=== PATIENT | female | born 1965 | race Caucasian/White ===

== ENCOUNTER 2021-09-17 11:36 | Outpatient (CLI) | payer OTHER | END 2021-09-17 11:37 | disposition home or self-care (01) | LOC: TBSIIMAG 11:36 | PROVIDERS: ATTEND Family Medicine | DX: M47.26 Other spondylosis with radiculopathy, lumbar region (principal); M48.07 Spinal stenosis, lumbosacral region | CPT/HCPCS: 72100; 72148 ==

== ENCOUNTER 2022-08-19 12:28 | Outpatient (CLI) | payer BC | END 2022-08-19 12:29 | disposition home or self-care (01) | LOC: TBSIIMAG 12:28 | PROVIDERS: ATTEND Surgery | DX: M51.16 Intervertebral disc disorders with radiculopathy, lumbar region (principal); M47.26 Other spondylosis with radiculopathy, lumbar region; M51.37 Other intervertebral disc degeneration, lumbosacral region | CPT/HCPCS: 72120; 72148 ==

== ENCOUNTER 2022-11-30 10:45 | Outpatient (CLI) | payer BC ==
[2022-11-30 13:12] LABS: Hemoglobin 16.2 g/dL (12.0-15.5); Mean Corpuscular HGB CONC 33.3 g/dL (32.0-36.0); Mean Corpuscular Hemoglobin 30.7 pg (27.0-33.0); Mean Corpuscular Volume 92.2 fl (81.6-98.3); Mean Platelet Volume 11.7 fl (7.4-10.4); Platelet Count 214 10x3/uL (150-450); RBC Distribution Width 13.1 % (11.5-14.5); Red Blood Cell (RBC) Count 5.28 10x6/uL (3.90-5.03)
[2022-11-30 13:39] LABS: PTT 28.8 sec (22.0-33.0); Prothrombin Time 10.5 sec (9.5-12.1)
[2022-11-30 13:40] LABS: Anion Gap 15 mmol/L (10-20); BUN (Urea Nitrogen) 12 mg/dL (9.8-20.1); Calc. Creatinine Clearance 0 mL/min (70-130); Calcium 9.4 mg/dL (7.8-10.44); Carbon Dioxide 29 mmol/L (22-29); Chloride 101 mmol/L (98-107); Estimated GFR 64; Glucose 115 mg/dL (70-105); Sodium 141 mmol/L (136-145)
[2022-11-30 13:48] LABS: Potassium 4.4 mmol/L (3.5-5.1)
== END 2022-11-30 10:46 | disposition home or self-care (01) ==
LOC: LABBT 10:45
PROVIDERS: ATTEND Surgery
DX: Z01.818 Encounter for other preprocedural examination (principal); M51.16 Intervertebral disc disorders with radiculopathy, lumbar region
CPT/HCPCS: 80048; 85027; 85610; 85730; 93005; 93010

== ENCOUNTER 2022-12-03 07:56 | Day surgery (SDC) | payer BC ==
[2022-12-02 09:55] VITALS: BMI 49.6
[2022-12-03 09:34] LABS: SARS-CoV-2 NAA Rapid Test Not Detected (NotDetected)
[2022-12-03] MEDS ORDERED: Thrombin 5000 UNITS/5 ML VIAL ONE (10:10)
[2022-12-03] MEDS ORDERED: Vancomycin 1 GM VIAL ONE (10:10)
[2022-12-03] MEDS ORDERED: Propofol 500 MG/50 ML VIAL ONE (10:51)
[2022-12-03] MEDS ORDERED: SUGAMMADEX SODIUM 200 MG/2 ML VIAL ONE (10:51)
[2022-12-03] MEDS ORDERED: Fentanyl 250 MCG/5 ML VIAL ONE (10:51)
[2022-12-03] MEDS ORDERED: Midazolam HCl 2 mg/2 ml Vial ONE (11:00)
[2022-12-03] MEDS ORDERED: Famotidine/PF 20 mg/2ml Vial ONE (11:00)
[2022-12-03] MEDS ORDERED: Clindamycin/D5W 900 mg/50 ml Premix Bag ONE (11:00)
[2022-12-03] MEDS ORDERED: Rocuronium Bromide 10 MG/ML (10ML VIAL) ONE (11:16)
[2022-12-03] MEDS ORDERED: NEOSTIGMINE 3 MG/3 ML SYR 3 MG/3 ML SYRINGE ONE (11:16)
[2022-12-03] MEDS ORDERED: PROPOFOL 200 MG/20 ML VIAL ONE (11:16)
[2022-12-03] MEDS ORDERED: Lidocaine 1% PF 5 ML VIAL ONE (11:16)
[2022-12-03] MEDS ORDERED: Ondansetron PF 4 MG/2 ML Vial ONE (11:16)
[2022-12-03] MEDS ORDERED: Glycopyrrolate 0.2 MG/ML 5 ML SYRINGE ONE (11:16)
[2022-12-03] MEDS ORDERED: PHENYLEPHRINE-NS 100 MCG/ML 10 ML SYRINGE ONE (11:16)
[2022-12-03] MEDS ORDERED: Dexamethasone 20 MG/5 ML VIAL ONE (11:16)
[2022-12-03] MEDS ORDERED: Fentanyl 100 MCG/2 ML VIAL ONE (13:52)
[2022-12-03] MEDS ORDERED: traMADol HCl 50 MG TAB ONE (15:17)
[2022-12-03] MEDS ORDERED: Cyclobenzaprine 10 MG TAB ONE (15:48)
== END 2022-12-03 16:13 | disposition home or self-care (01) ==
LOC: SDC 07:56
PROVIDERS: ATTEND Surgery
PROC: 01NB0ZZ Release Lumbar Nerve, Open Approach (ICD-10-PCS; principal; 2022-12-03)
PROC: 0SB40ZZ Excision of Lumbosacral Disc, Open Approach (ICD-10-PCS; principal; 2022-12-03)
DX: M48.061 Spinal stenosis, lumbar region without neurogenic claudication (principal); M51.16 Intervertebral disc disorders with radiculopathy, lumbar region; Z79.01 Long term (current) use of anticoagulants; Z79.02 Long term (current) use of antithrombotics/antiplatelets; Z79.82 Long term (current) use of aspirin; Z79.899 Other long term (current) drug therapy; Z88.0 Allergy status to penicillin; Z88.1 Allergy status to other antibiotic agents; Z88.5 Allergy status to narcotic agent; Z88.7 Allergy status to serum and vaccine; Z88.8 Allergy status to other drugs, medicaments and biological substances; Z20.822 Contact with and (suspected) exposure to COVID-19
CPT/HCPCS: C1894; J1100; J2250; J2405; J2704; J3010; J3370; J3490; S0028; U0002

== ENCOUNTER 2023-12-30 13:56 | Outpatient (CLI) | payer BC ==
[2023-12-30 14:57] LABS: Hematocrit 48.1 % (34.9-44.5); Hemoglobin 16.7 g/dL (12.0-15.5); Mean Corpuscular HGB CONC 34.7 g/dL (32.0-36.0); Mean Corpuscular Hemoglobin 32.4 pg (27.0-33.0); Mean Corpuscular Volume 93.4 fl (81.6-98.3); Mean Platelet Volume 12.5 fl (7.4-10.4); Platelet Count 194 10x3/uL (150-450); RBC Distribution Width 12.8 % (11.5-14.5); Red Blood Cell (RBC) Count 5.15 10x6/uL (3.90-5.03); White Blood Cell (WBC) Count 10.9 10x3/uL (3.5-10.5)
[2023-12-30 15:04] LABS: Anion Gap 12 mmol/L (10-20); BUN (Urea Nitrogen) 9 mg/dL (9.8-20.1); Calc. Creatinine Clearance 0 mL/min (70-130); Carbon Dioxide 30 mmol/L (22-29); Chloride 101 mmol/L (98-107); Estimated GFR 70; Glucose 103 mg/dL (70-105); Potassium 4.4 mmol/L (3.5-5.1); Sodium 139 mmol/L (136-145)
[2023-12-30 15:05] LABS: PTT 33.3 sec (22.0-33.0)
== END 2023-12-30 13:57 | disposition home or self-care (01) ==
LOC: LABBT 13:56
PROVIDERS: ATTEND Surgery
DX: Z01.812 Encounter for preprocedural laboratory examination (principal); M48.061 Spinal stenosis, lumbar region without neurogenic claudication; M54.16 Radiculopathy, lumbar region
CPT/HCPCS: 80048; 85027; 85610; 85730; 93005; 93010

== ENCOUNTER 2024-01-03 06:18 | Inpatient (IN) | payer BC ==
[2023-12-30 14:27] VITALS: BMI 39.3
[2024-01-03] MEDS ORDERED: Vancomycin 1 GM VIAL ONE (06:30)
[2024-01-03] MEDS ORDERED: Thrombin 5000 UNITS/5 ML VIAL ONE (06:31)
[2024-01-03] MEDS ORDERED: PROPOFOL 20 ML ONE (06:57)
[2024-01-03] MEDS ORDERED: Rocuronium Bromide 10 MG/ML (10ML VIAL) ONE (06:58)
[2024-01-03] MEDS ORDERED: Fentanyl 250 MCG/5 ML VIAL ONE (06:58)
[2024-01-03] MEDS ORDERED: Ketamine In 0.9 % NaCl 50 MG/5 ML SYRINGE ONE (06:58)
[2024-01-03] MEDS ORDERED: Lidocaine 1% PF 5 ML VIAL ONE (06:58)
[2024-01-03] MEDS ORDERED: Vancomycin (BATCH) 2 GM in Premix 1 BAG IVPB SCH (07:00)
[2024-01-03] MEDS ORDERED: Midazolam HCl 2 mg/2 ml Vial ONE (07:26)
[2024-01-03] MEDS ORDERED: MINERAL OIL/WHITE PETROLATUM 3.5 GM TUBE ONE (08:02)
[2024-01-03] MEDS ORDERED: PHENYLEPHRINE-NS 100 MCG/ML 10 ML SYRINGE ONE (08:59)
[2024-01-03] MEDS ORDERED: Vecuronium 10 MG VIAL ONE (09:54)
[2024-01-03] MEDS ORDERED: Promethazine HCl 25 MG/ML VIAL IM PRN ×2 (11:03→15:17)
[2024-01-03] MEDS ORDERED: Ondansetron HCl/PF 4 MG/2 ML Vial IVP PRN (11:03)
[2024-01-03] MEDS ORDERED: diphenhydrAMINE 25 MG CAP PO PRN ×2 (11:32→15:17)
[2024-01-03] MEDS ORDERED: fentaNYL 50 mcg/mL 1 mL Vial SLOW IVP PRN (11:32)
[2024-01-03] MEDS ORDERED: oxyCODONE 5 MG TAB PO PRN ×2 (11:35)
[2024-01-03] MEDS ORDERED: Ondansetron PF 4 MG/2 ML Vial ONE (11:35)
[2024-01-03] MEDS ORDERED: Dexmedetomidine 200 MCG/2 ML VIAL ONE (11:36)
[2024-01-03] MEDS ORDERED: hydrALAZINE 20 MG/ML VIAL SLOW IVP PRN (11:36)
[2024-01-03] MEDS ORDERED: Glycopyrrolate 0.2 MG/ML 5 ML SYRINGE ONE (11:36)
[2024-01-03] MEDS ORDERED: NEOSTIGMINE 3 MG/3 ML SYR 3 MG/3 ML SYRINGE ONE (11:36)
[2024-01-03] MEDS ORDERED: Lidocaine 2% PF 5 ML VIAL ONE (11:36)
[2024-01-03] MEDS ORDERED: Nitroglycerin 0.4 MG TAB (25 Tab Bottle) SL PRN (11:38)
[2024-01-03] MEDS ORDERED: ALPRAZolam 0.5 MG TAB PO PRN (11:38)
[2024-01-03] MEDS ORDERED: Albuterol 2.5 MG (3 mL) NEB NEB PRN ×2 (11:38→13:07)
[2024-01-03] MEDS ORDERED: Fluticasone Propionate Nasal Spray 16 gm Bottle NASAL PRN (11:38)
[2024-01-03] MEDS ORDERED: traMADol HCl 50 MG TAB PO PRN (11:38)
[2024-01-03] MEDS ORDERED: Diazepam 5 MG TAB PO PRN (11:38)
[2024-01-03] MEDS ORDERED: Promethazine HCl 12.5 MG in Sodium Chloride 0.9% 50 ML IVPB PRN (11:38)
[2024-01-03] MEDS ORDERED: fentaNYL 50 mcg/mL 1 mL Vial ONE ×2 (12:08→13:56)
[2024-01-03] MEDS ORDERED: Ketorolac Tromethamine 30 MG (1 mL) VIAL ONE (12:30)
[2024-01-03] MEDS ORDERED: Meperidine HCl/PF 25 MG (1 mL) VIAL ONE (12:52)
[2024-01-03] MEDS ORDERED: Loratadine 10 MG TAB PO PRN (12:56)
[2024-01-03] MEDS: Diazepam 10 MG/2 ML SYRINGE IVP SCH (14:58)
[2024-01-03] MEDS ORDERED: diphenhydrAMINE 50 MG/ML VIAL IM PRN (15:17)
[2024-01-03] MEDS ORDERED: diphenhydrAMINE 50 MG/ML VIAL IVP PRN (15:17)
[2024-01-03] MEDS ORDERED: Ondansetron PF 4 MG/2 ML Vial IVP PRN (15:17)
[2024-01-03] MEDS ORDERED: FENTANYL 500 MCG/10 ML VIAL 2,000 MCG in Sodium Chloride 0.9% 60 ML IV PRN (15:17)
[2024-01-03] MEDS ORDERED: Naloxone HCl 0.4 mg/ml Vial IV PRN (15:17)
[2024-01-03] MEDS ORDERED: Communication Order-Pharmacy FS SCH (15:30)
[2024-01-03] MEDS: Fentanyl CADD 100 ML IVPB SCH (16:24)
[2024-01-03] MEDS: Polyethylene Glycol 3350 17 GM Packet PO SCH (16:36)
[2024-01-03] MEDS: Sodium Chloride 0.9% 1,000 ML IV SCH (18:19)
[2024-01-03] MEDS: Ipratropium/Albuterol 3 ML NEB NEB SCH (18:34)
[2024-01-03] MEDS: Cholecalciferol 1,000 UNITS (25 MCG) TAB PO SCH (20:22)
[2024-01-03] MEDS: Rosuvastatin 10 MG TAB PO SCH (20:23)
[2024-01-04] MEDS: Cyclobenzaprine 10 MG TAB PO PRN (03:07)
[2024-01-04 04:05] LABS: #Basophils 0.07 10x3/uL (0.0-0.2); %Basophils 0.5 % (0.0-1.0); %Lymphocytes 20.4 % (21.0-51.0); %Neutrophils 70.7 % (42.0-75.0); Hematocrit 40.3 % (36.0-47.0); Hemoglobin 13.6 g/dL (12.0-16.0); Mean Corpuscular HGB CONC 33.7 g/dL (32.0-36.0); Mean Corpuscular Hemoglobin 32.4 pg (27.0-31.0); Mean Platelet Volume 12.4 fL (7.4-10.4); Platelet Count 166 10x3/uL (130-400); RBC Distribution Width 13.1 % (11.5-14.5)
[2024-01-04 04:19] LABS: Anion Gap 13 mmol/L (10-20); BUN (Urea Nitrogen) 10 mg/dL (9.8-20.1); Calc. Creatinine Clearance 111 mL/min (70-130); Calcium 9.4 mg/dL (7.8-10.44); Carbon Dioxide 30 mmol/L (22-29); Chloride 101 mmol/L (98-107); Estimated GFR 66; Glucose 119 mg/dL (70-105); Potassium 4.7 mmol/L (3.5-5.1); Sodium 139 mmol/L (136-145)
[2024-01-04] MEDS: Ketorolac Tromethamine 30 MG (1 mL) VIAL IVP PRN (05:29)
[2024-01-04] MEDS: Polyethylene Glycol 3350 17 GM Packet PO SCH (08:49)
[2024-01-04] MEDS: Spironolactone 25 MG TAB PO SCH (08:49)
[2024-01-04] MEDS: CO Q-10 CAPSULE 100 MG PO SCH (08:49)
[2024-01-04] MEDS: ALPRAZolam 0.5 MG TAB PO SCH (08:49)
[2024-01-04] MEDS: Multivitamin W/ Minerals 1 TAB PO SCH (09:20)
[2024-01-04] MEDS ORDERED: Fentanyl 100 MCG/2 ML VIAL SLOW IVP PRN (10:01)
[2024-01-04] MEDS: oxyCODONE 5 MG TAB PO PRN ×2 (14:52→20:10)
[2024-01-04] MEDS: Gabapentin 300 MG CAP PO SCH (14:53)
[2024-01-04] MEDS: Diazepam 5 MG TAB PO PRN (22:32)
[2024-01-05 08:15] VITALS: BP 103/64; TEMP 99.5
== END 2024-01-05 11:30 | disposition home or self-care (01) | DRG 455 ==
LOC: SDC 06:18 → SURG B 11:39 → OBSVTOIN 01-04 10:57
PROVIDERS: ADMIT Surgery; ATTEND Surgery
PROC: 0SG3071 Fusion of Lumbosacral Joint with Autologous Tissue Substitute, Posterior Approach, Posterior Column, Open Approach (ICD-10-PCS; principal; 2024-01-03)
PROC: 0SG30AJ Fusion of Lumbosacral Joint with Interbody Fusion Device, Posterior Approach, Anterior Column, Open Approach (ICD-10-PCS; 2024-01-03)
PROC: 01NB0ZZ Release Lumbar Nerve, Open Approach (ICD-10-PCS; 2024-01-03)
PROC: 0SB40ZZ Excision of Lumbosacral Disc, Open Approach (ICD-10-PCS; 2024-01-03)
PROC: 5A09357 Assistance with Respiratory Ventilation, Less than 24 Consecutive Hours, Continuous Positive Airway Pressure (ICD-10-PCS; 2024-01-03)
DX: M48.062 Spinal stenosis, lumbar region with neurogenic claudication (principal); M54.16 Radiculopathy, lumbar region; Z88.0 Allergy status to penicillin; Z88.1 Allergy status to other antibiotic agents; Z88.5 Allergy status to narcotic agent
CPT/HCPCS: 36415; 80048; 85025; A4314; A6258; C1713; C1889; J1885; J2001; J2175; J2250; J2405; J2704; J3010; J3360; J3370; J3490; J7620